=== PATIENT | female | born 1940 | race Caucasian/White ===

== ENCOUNTER 2018-05-24 08:17 | Day surgery (SDC) | payer MEDICARE ==
[~2018-05-24 08:17] MED LIST: ADAL40SY SQ; BUDE3CAP7 PO; FOLI1TAB15 PO; LISI10TA7 PO; MAGN250T10 PO; METH2.5T6 PO; OMEG-148 PO; OXYB10TA4 PO; POTA20TA12 PO; SODIUM CHLORIDE 0.9% 1000ML 1,000 ML IV ONE
[2018-05-24 09:36] VITALS: BP 140/65
[2018-05-24] MEDS ORDERED: OMEP20CA10 PO (10:15)
[2018-05-24] MEDS ORDERED: CHOL4PAC PO (10:15)
[2018-05-24] MEDS ORDERED: PROPOFOL 10 MG/ML 20ML VIAL IV ONE (12:14)
[2018-05-24 12:32] VITALS: BP 121/58
[2018-05-24 12:35] VITALS: BP 144/70
[2018-05-24 12:48] VITALS: BP 139/72
--- NOTE | 2018-05-24 13:00 | NUR ---
PATIENT AND HER SPOUSE HAD QUESTIONS ON HER DIET, INSTRUCTED PATIENT AND FAMILY TO CONTINUE WITH PREVIOUS DIET GIVEN TO THEM BY HER DOCTOR.UNTIL NEXT APPOINTMENT NEXT WEEK DURING FOLLOWUP APPOINTMENT.
[2018-05-24 13:05] VITALS: BP 152/62
[2018-05-24 13:22] VITALS: BP 148/62
== END 2018-05-24 13:20 | disposition home or self-care (01) ==
LOC: ENDO 08:17 → DAH 08:17 → ENDO 13:20
PROVIDERS: ATTEND Internal Medicine
DX: K83.8 Other specified diseases of biliary tract (principal); K86.89 Other specified diseases of pancreas; K57.10 Diverticulosis of small intestine without perforation or abscess without bleeding; K31.89 Other diseases of stomach and duodenum; K86.9 Disease of pancreas, unspecified; I10 Essential (primary) hypertension; Z85.07 Personal history of malignant neoplasm of pancreas; Z85.3 Personal history of malignant neoplasm of breast; Z79.899 Other long term (current) drug therapy; Z98.890 Other specified postprocedural states; Z90.710 Acquired absence of both cervix and uterus; Z88.8 Allergy status to other drugs, medicaments and biological substances; Z88.0 Allergy status to penicillin; N39.0 Urinary tract infection, site not specified; K50.919 Crohn's disease, unspecified, with unspecified complications; K85.00 Idiopathic acute pancreatitis without necrosis or infection
CPT/HCPCS: 43238; 88108; 88305; 93005; A4215; A4606; J2704; J7030